=== PATIENT | female | born 1995 | race Caucasian/White ===

== ENCOUNTER → 2017-07-17 | Outpatient (CLI) | payer BC ==
--- NOTE | 2017-07-18 10:50 | RAD ---
EXAM DESCRIPTION: Chest,2 Views CLINICAL HISTORY: CHEST PAIN COMPARISON: None TECHNIQUE: PA/lateral FINDINGS: There is no acute appearing cardiac or pulmonary abnormality. Heart size is normal with normal pulmonary vascularity. No pleural effusion or pneumothorax. Lungs are clear with no consolidating infiltrate. Lateral view shows intact sternum and T-spine. IMPRESSION: No acute process is identified in the chest. Electronically signed by: Volodymyr Cruz MD 07/18/2017 10:48 AM CDT
== END ==
LOC: YCFC.O 16:16
PROVIDERS: ATTEND Nurse Practitioner Family
DX: R07.89 Other chest pain (principal)